=== PATIENT | male | born 1995 | race African-American/Black ===

== ENCOUNTER 2022-01-07 02:18 | Emergency (ER) | payer MEDICAID, SELFPAY ==
[~2022-01-07] VITALS: Ht 180.3 cm; Wt 91.6 kg
[2022-01-07 02:32] VITALS: BP_SYST 114
[2022-01-07] MEDS: NACL 0.9% 1,000 ML IV ONE ×2 (03:48→05:07)
[2022-01-07 04:23] LABS: HEMATOCRIT 37.1 % (36-54); HEMOGLOBIN 12.3 g/dL (14.0-18.0); MEAN CORPUSCULAR HEMOGLOBIN 30 pg (27-31); MEAN CORPUSCULAR HGB CONC 33 % (32-36); MEAN CORPUSCULAR VOLUME 92 fL (79.0-98.0); PLATELET COUNT (AUTO) 155 K/uL (130-430); RED BLOOD CELL COUNT(AUTO) 4.05 MIL/uL (4.2-6.2); WHITE BLOOD COUNT (AUTO) 6.8 K/uL (4.8-10.8)
[2022-01-07 04:33] LABS: ANION GAP 9 (5-15); CALCIUM 7.2 mg/dL (8.4-11.0); CHLORIDE 107 mmol/L (98-107); CREATININE 0.67 mg/dL (0.55-1.30); GLUCOSE 96 mg/dL (70-99); POTASSIUM 3.7 mmol/L (3.5-5.1); SODIUM SERUM 142 mmol/L (136-145); UREA NITROGEN, BLOOD 8 mg/dL (8-21)
[2022-01-07 04:39] LABS: ALANINE AMINOTRANSFERASE 36 U/L (12-78); ALCOHOL, BLOOD 8 mg/dL (<10); ASPARTATE AMINOTRANSFERASE 36 U/L (10-37)
[2022-01-07 04:40] LABS: CHOLESTEROL 112 mg/dL (<200); GFR AFRICAN AMERICAN 183 mL/min (>90); HDL CHOLESTEROL 38 mg/dL (>45); LDL CHOLESTEROL 66 mg/dL (<100); TRIGLYCERIDES 103 mg/dL (30-150)
[2022-01-07 04:42] LABS: ACETAMINOPHEN < 1 ug/mL (1-30)
[2022-01-07 04:53] LABS: TOTAL BILIRUBIN 0.1 mg/dL (0.0-1.0)
[2022-01-07 05:14] LABS: ATYPICAL LYMPHOCYTES % 16 % (0-0); BAND % (MANUAL) 1 % (0-6); BASOPHILS % (MANUAL) 0 % (0-2); EOSINOPHILS % (MANUAL) 0 % (0-7); LYMPHOCYTES % (MANUAL) 32 % (20-46); MONOCYTES % (MANUAL) 10 % (0-11)
[2022-01-07 05:15] LABS: METAMYELOCYTES % 1 % (0-0)
[2022-01-07 15:39] VITALS: BP_SYST 151
== END 2022-01-07 15:39 | disposition home or self-care (01) ==
LOC: SED 02:18 → EDBD 02:18 → SED 15:39
DX: F32.A Depression, unspecified (principal); R55 Syncope and collapse; Z20.822 Contact with and (suspected) exposure to COVID-19
CPT/HCPCS: 36415; 80053; 80061; 85007; 85027; 87426; 93005; 96360; 96361; 99285; G0480; J7030; G0481; G0482

== ENCOUNTER 2023-07-04 22:25 | Emergency (ER) | payer MEDICARE, MEDICAID ==
[~2023-07-04] VITALS: Ht 175.3 cm; Wt 90.7 kg
[2023-07-04 22:38] VITALS: BP_SYST 136; PULSE 72; RESP 18; TEMP 98.2; O2SAT 99
[2023-07-04] MEDS ORDERED: DIVA-74 PO (23:21)
[2023-07-04] MEDS ORDERED: OLAN10TA3 PO (23:21)
[2023-07-04] MEDS ORDERED: IBUPROFEN 600 MG TABLET PO ONE (23:45)
[2023-07-05 00:01] LABS: BASOPHILS % (AUTO) 0.6 % (0.0-2.0); EOSINOPHILS # (AUTO) 0.2 K/uL (0.0-0.4); EOSINOPHILS % (AUTO) 2.6 % (0.0-4.0); HEMATOCRIT 38.3 % (36-54); HEMOGLOBIN 12.8 g/dL (14.0-18.0); LYMPHOCYTES # (AUTO) 4.1 K/uL (1.0-5.5); LYMPHOCYTES % (AUTO) 58.2 % (20.5-51.5); MEAN CORPUSCULAR HEMOGLOBIN 32 pg (27-31); MEAN CORPUSCULAR HGB CONC 34 % (32-36); MEAN CORPUSCULAR VOLUME 94 fL (79.0-98.0); MONOCYTES # (AUTO) 0.7 K/uL (0.0-1.0); MONOCYTES % (AUTO) 10.5 % (1.7-9.3); NEUTROPHILS % (AUTO) 28.1 % (40.0-70.0); PLATELET COUNT (AUTO) 250 K/uL (130-430); RED BLOOD CELL COUNT(AUTO) 4.08 MIL/uL (4.2-6.2); RED CELL DISTRIBUTION WIDTH 13.5 % (9.0-15.0)
[2023-07-05 00:15] LABS: ANION GAP 8 (5-15); CALCIUM 8.5 mg/dL (8.4-11.0); CARBON DIOXIDE 30 mmol/L (23-29); CHLORIDE 103 mmol/L (98-107); CREATININE 1.11 mg/dL (0.55-1.30); GFR AFRICAN AMERICAN 101 mL/min (>90); GLUCOSE 103 mg/dL (74-106); SODIUM SERUM 141 mmol/L (136-145); UREA NITROGEN, BLOOD 11 mg/dL (8-21)
[2023-07-05 00:20] LABS: ALANINE AMINOTRANSFERASE 20 U/L (12-78); ALBUMIN 3.5 g/dL (3.4-4.8); ASPARTATE AMINOTRANSFERASE 29 U/L (10-37); SALICYLATE 1 mg/dL (3-30); TOTAL BILIRUBIN 0.2 mg/dL (0.0-1.0); TOTAL PROTEIN, SERUM 7.2 g/dL (6.4-8.3)
[2023-07-05 00:25] LABS: GFR NON AFRICAN-AMERICAN 84 mL/min (>90)
[2023-07-05 00:26] LABS: ACETAMINOPHEN < 1 ug/mL (1-30); ALCOHOL, BLOOD < 3 mg/dL (<10)
[2023-07-05 04:55] LABS: BILIRUBIN,URINE NEGATIVE (NEGATIVE); BLOOD, URINE NEGATIVE (NEGATIVE); CLARITY/URINE CLEAR (CLEAR); COLOR,URINE Y (YELLOW); GLUCOSE,URINE NEGATIVE (NEGATIVE); KETONES,URINE NEGATIVE (NEGATIVE); LEUKOCYTE ESTERASE ,URINE NEGATIVE (NEGATIVE); NITRITE, URINE NEGATIVE (NEGATIVE); PH,URINE 6.5 (5.0-8.0); PROTEIN URINE NEGATIVE (NEGATIVE); UROBILINOGEN,URINE 0.2 (0.2-1.0)
[2023-07-05 04:57] LABS: BARBITURATE, URINE NEGATIVE (NEG <=200); BENZODIAZEPINE, URINE POSITIVE (NEG <=150); CANNABINOID, URINE NEGATIVE (NEG <=50); COCAINE, URINE NEGATIVE (NEG <=150); METHAMPHETAMINES SCREEN,URINE NEGATIVE (NEG <=500); OPIATE, URINE NEGATIVE (NEG <=100); PHENCYCLIDINE SCREEN,URINE NEGATIVE (NEG <=25); UR TRICYCLIC ANTIDEPRESSANTS NEGATIVE (NEG <=300); URINE AMPHETAMINE NEGATIVE (NEG <=500); URINE METHADONE NEGATIVE (NEG <=200); URINE OXYCODONE SCREEN NEGATIVE (NEG <=100); URINE PROPOXYPHENE SCREEN NEGATIVE (NEG <=300)
[2023-07-05 17:01] VITALS: BP_SYST 104; PULSE 82; RESP 16; TEMP 98.5; O2SAT 97
== END 2023-07-05 15:15 ==
LOC: SED 22:25
DX: R45.851 Suicidal ideations (principal); Z88.7 Allergy status to serum and vaccine; Z88.8 Allergy status to other drugs, medicaments and biological substances; Z79.899 Other long term (current) drug therapy; Z20.822 Contact with and (suspected) exposure to COVID-19
CPT/HCPCS: 99285; 87426; 80307; 80053; 85025; 36415; 81003; G0480; G0481; G0482